=== PATIENT | male | born 1985 | race Caucasian/White ===

== ENCOUNTER 2018-03-13 21:50 | Emergency (ER) | payer BC, SELFPAY ==
[2018-03-13 21:52] VITALS: BP 146/89; PULSE 67; RESP 14; TEMP 36.7; O2SAT 98; BMI 35.1
--- NOTE | 2018-03-13 22:37 | US_ITS ---
STUDY: SCROTUM ULTRASOUND REASON FOR EXAM: Male, 33 years old. Right testicular pain with anterior nodule. TECHNIQUE: Ultrasound evaluation of the scrotum was performed with color Doppler and static pinedo-scale imaging. COMPARISON: None. FINDINGS: RIGHT TESTICLE INTRATESTICULAR: There is a normal size of the right testicle. The right testicle measures 4.9 x 3.1 x 2.8 cm. There is a homogenous echotexture. There is normal arterial and normal venous vascularity. There is no demonstrated right testicular mass or cyst. EXTRATESTICULAR: The epididymis is normal in size. The epididymis head measures 1.5 x 1.7 x 1.1 cm. There is normal vascularity of the epididymis. There are 2 well-defined cystic structures within the epididymis, without internal echoes, consistent with a 1.2 x 0.9 x 0.5 and a 0.6 x 0.6 x 0.7 cm epididymal cyst. There is a moderate size hydrocele containing debris. There is no demonstrated varicocele. There is no demonstrated extratesticular mass or cyst. Scrotal wall thickness is 0.3 cm. LEFT TESTICLE INTRATESTICULAR: There is a normal size of the left testicle. The left testicle measures 4.3 x 3.2 x 2.3 cm. There is a homogenous echotexture. There is normal arterial and normal venous vascularity. There is no demonstrated left testicular mass or cyst. EXTRATESTICULAR: The epididymis is normal in size. The epididymis head measures 1.4 x 1.2 x 0.8 cm. There is normal vascularity of the epididymis. There is a 0.2 x 0.3 x 0.2 cm well-defined cystic structure within the epididymis, without internal echoes, consistent with an epididymal cyst. There is a moderate size hydrocele containing debris. There is no demonstrated varicocele. There is no demonstrated extratesticular mass or cyst. Scrotal wall thickness 0.3 cm. US/Testicular with Arterial Flow IMPRESSION: There is no testicular mass, inflammation or torsion. 2 right epididymal cysts at the site of palpable abnormality. Tiny left epididymal cyst. Bilateral moderate hydrocele with layering debris. Electronically Signed: Phylicia Sarmiento MD at 23:51 EST , Service support ,
[2018-03-13 23:42] LABS: Bacteria 0 SEEN /hpf (None Seen); Mucous, Urine 0 SEEN /hpf (<or=2+); Red Blood Cells-Urine 0 SEEN /hpf (0-5); White Blood Cells 0 SEEN /hpf (0-5)
[2018-03-13 23:49] LABS: Color, Urine Yellow (Yellow); Glucose, Dipstick Normal (Normal); Ketone-Dipstick Negative (Negative); Leukocyte Esterase-Dipstick Negative /ul (Negative); Nitrite-Dipstick Negative (Negative); Occult Blood-Urine Negative /ul (Negative); Protein-Dipstick Negative (Negative); Urine Bilirubin Dipstick Negative (Negative); Urine Clarity Clear (Clear); Urine Urobilinogen Normal (Normal); Urine pH 6.5 (5.0 - 8.0)
[2018-03-14 00:10] LABS: Squamous Epithelial Cells - UA 0-5 SEEN /hpf (0-5)
[2018-03-14 00:30] VITALS: RESP 16; O2SAT 98
--- NOTE | 2018-03-14 00:35 | ED.VISSUMM ---
- ER Visit Summary Date of Service: 03/14/18 Chief Complaint: Blood in semen and lump on testicle History of Present Illness: The patient is a 33 M who presents with blood in his semen which he first noticed 1 week ago. Today noticed a lump on his right testicle. He denies any pain. No history of sexually transmitted infection. No urethral discharge. No dysuria urgency or frequency. Review of systems otherwise negative. No history of prior similar symptoms. Physical Examination: Afebrile vitals unremarkable Moist mucous membranes Heart regular rate and rhythm Lungs clear Patient does have a right epididymal nodule with some tenderness there is no testicular tenderness there is no rash there is no urethral discharge normal lie of the testicles Test Results: Urinalysis normal. Urine GC and chlamydia were sent. Testicular ultrasound shows right epididymal cysts and bilateral hydroceles. Emergency Department Course and Treatment: Ultrasound unremarkable except epididymal cysts. No evidence of malignancy. Patient was referred to urology for follow-up. Patient discharged. Treatment Plan: [] Disposition: Discharge Impression: Hematospermia Epididymal cyst This note was generated with [employer] dictation software. It may contain incorrect words, spelling, and punctuation that were not noted in review of the chart prior to signing ED Disposition - Plan for ED Patient: Chief Complaint: Male Pain/Injury Referrals: Care Physician,No Primary [Primary Care Provider] -
--- NOTE | 2018-03-14 00:36 | ED.DEP ---
ED Disposition - Plan for ED Patient: Chief Complaint: Male Pain/Injury Referrals: Care Physician,No Primary [Primary Care Provider] - Raj Spivey MD [STAFF PHYSICIAN] - Additional Instructions: You were found to have cysts above your testicle. He has had blood in your semen but there is no evidence of cancer based on your ultrasound. Follow-up with urology. Return for any new or worsening symptoms.
[2018-03-14 00:43] VITALS: BP 136/82; PULSE 88; RESP 16; O2SAT 100
[2018-03-14 01:59] LABS: Chlamydia Trachomatis by PCR Negative (Negative); Neisserai gonorrhoeae by PCR Negative (Negative); Probe Check PASS; Sample Adequacy Control PASS; Specimen Processing Control PASS
--- OUTSIDE RECORDS SUMMARY | 2018-05-09 10:37 | XMS RPT_ITS ---
:1985 Author Organization [facility] Care Team Providers Name Role Phone Dao Jones Attending Unavailable Primay Care Physicia, No Primary Care Unavailable PROBLEMS PROBLEMS No Problem Records FoundPROCEDURES PROCEDURES No Procedure Records FoundRESULTS RESULTS DISCHARGE INSTRUCTION Observed: 03/14/2018 Status: F Source: [place] 12:37 AM [facility] REPOSITORY [facility] Medical Records Department [address] [place] [address] Discharge Instruction 03/14/186 MR#: [id number] Acct: [id number] Name: KANU JENKINS Rep #: [id number] : 1985 33 From: Dao Jones MD PCP: Care Physician, No Primary Status: REG ER ED Disposition - Plan for ED Patient: Chief Complaint: Male Pain/Injury Referrals: Care Physician,No Primary [Primary Care Provider] - Raj Spivey MD [STAFF PHYSICIAN] - Additional Instructions: You were found to have cysts above your testicle. He has had blood in your semen but there is no evidence of cancer based on your ultrasound. Follow-up with urology. Return for any new or worsening symptoms. What to do if you have Problems For any increased pain, shortness of breath, bleeding, nausea or vomiting, chest pain, or any unexpected problems, contact your Primary Care Provider. Call [facility] ([phone]) or report to the closest Emergency Room. Call 911 if necessary. 03/14/187 <Electronically signed by Dao Jones MD> Date Dao Jones MD Cosigner Signature (If Indicated): Date CC: No Primary Care Physician EMERGENCY DEPARTMENT Observed: 03/14/2018 Status: F Source: [place] SUMMARY 12:36 AM [facility] REPOSITORY [facility] Medical Records Department [address] [place] [address] Emergency Department Summary 03/14/18 0035 MR#: [id number] Acct: [id number] Name: KANU JENKINS Rep #: [id number] : 1985 33 From: Dao Jones MD PCP: Care Physician, No Primary Status: REG ER - ER Visit Summary Date of Service: 03/14/18 Chief Complaint: Blood in semen and lump on testicle History of Present Illness: The patient is a 33 M who presents with blood in his semen which he first noticed 1 week ago. Today noticed a lump on his right testicle. He denies any pain. No history of sexually transmitted infection. No urethral discharge. No dysuria urgency or frequency. Review of systems otherwise negative. No history of prior similar symptoms. Physical Examination: Afebrile vitals unremarkable Moist mucous membranes Heart regular rate and rhythm Lungs clear Patient does have a right epididymal nodule with some tenderness there is no testicular tenderness there is no rash there is no urethral discharge normal lie of the testicles Test Results: Urinalysis normal. Urine GC and chlamydia were sent. Testicular ultrasound shows right epididymal cysts and bilateral hydroceles. Emergency Department Course and Treatment: Ultrasound unremarkable except epididymal cysts. No evidence of malignancy. Patient was referred to urology for follow-up. Patient discharged. Treatment Plan: [] Disposition: Discharge Impression: Hematospermia Epididymal cyst This note was generated with [employer] dictation software. It may contain incorrect words, spelling, and punctuation that were not noted in review of the chart prior to signing ED Disposition - Plan for ED Patient: Chief Complaint: Male Pain/Injury Referrals: Care Physician,No Primary [Primary Care Provider] - What to do if you have Problems For any increased pain, shortness of breath, bleeding, nausea or vomiting, chest pain, or any unexpected problems, contact your Primary Care Provider. Call [facility] ([phone]) or report to the closest Emergency Room. Call 911 if necessary. 03/14/18 0036 <Electronically signed by Dao Jones MD> Date Dao Jones MD Cosigner Signature (If Indicated): Date CC: No Primary Care Physician URINALYSIS, COMPLETE Collected: 03/13/2018 Status: F Source: [place] 11:32 PM [facility] REPOSITORY Order Comment: Order Date: 03/13/18 How was Urine Obtained? CLEAN CATCH TYPE CODE TESTS RESULT OUT OF RANGE REFERENCE UNITS LAB L400.3000 Yellow COLOR Normal Yellow LAB L400.3050 Clear Normal CLARITY Clear LAB L400.3200 Normal mg/dl Normal GLUCOSE, UR Normal LAB L400.3300 Negative mg/dL Normal BILIRUBIN URINE Negative LAB L400.3400 Negative mg/dl Normal KETONE UR Negative LAB L400.3465 1.002-1.030 Normal SP.GR. DIPSTX 1.020 LAB L400.3550 5.0 - 8.0 pH UR Normal 6.5 LAB L400.3600 Negative mg/dl PROT Normal DIPSTX Negative LAB L400.3700 Normal mg/dl Normal UROBILI Normal LAB L400.3750 Negative Normal NITRITE UR Negative LAB L400.3780 Negative /ul Normal OCCULT BLOOD-UR Negative LAB L400.3800 Negative /ul LEUK Normal ESTERASE Negative LAB L400.4050 0-5 /hpf WBC 0 Normal SEEN LAB L400.4100 0-5 /hpf 0 Normal RBC-UA SEEN LAB L400.4150 0-5 /hpf SQUAM Normal EPI 0-5 SEEN LAB L400.4300 None Seen /hpf 0 Normal BACTERIA SEEN LAB L400.4350 <or=2+ /hpf 0 Normal MUCUS, URINE SEEN Performed By: #### L400.0001 #### [facility] [address] [place], [address] CT/NG [facility] BY PCR Collected: 03/13/2018 Status: F Source: [place] 11:32 PM [facility] REPOSITORY TYPE CODE TESTS RESULT OUT OF RANGE REFERENCE UNITS LAB L8200.2100 Negative Normal Chlam Negative Trac PCR LAB L8200.2200 Negative Normal NG by Negative PCR Performed By: #### L8200.2000 #### [facility] [address] [place], [address] TESTICULAR WITH Observed: 03/13/2018 Status: F Source: [place] ARTERIAL FLOW 10:37 PM [facility] REPOSITORY [facility] Imaging Services [address] [place] [address] Testicular with Arterial Flow MR#: [id number] Acct: [id number] Name: KANU JENKINS Rep #: [id number] : 1985 M 33 From: Phylicia Sarmiento MD PCP: Care Physician, No Primary Status: REG ER Study: Testicular with Arterial Flow Date of Exam: 03/13/18 Exam# [id number] Ordering Dr: Dao Jones MD STUDY: SCROTUM ULTRASOUND REASON FOR EXAM: Male, 33 years old. Right testicular pain with anterior nodule. TECHNIQUE: Ultrasound evaluation of the scrotum was performed with color Doppler and static pinedo-scale imaging. COMPARISON: None. FINDINGS: RIGHT TESTICLE INTRATESTICULAR: There is a normal size of the right testicle. The right testicle measures 4.9 x 3.1 x 2.8 cm. There is a homogenous echotexture. There is normal arterial and normal venous vascularity. There is no demonstrated right testicular mass or cyst. EXTRATESTICULAR: The epididymis is normal in size. The epididymis head measures 1.5 x 1.7 x 1.1 cm. There is normal vascularity of the epididymis. There are 2 well-defined cystic structures within the epididymis, without internal echoes, consistent with a 1.2 x 0.9 x 0.5 and a 0.6 x 0.6 x 0.7 cm epididymal cyst. There is a moderate size hydrocele containing debris. There is no demonstrated varicocele. There is no demonstrated extratesticular mass or cyst. Scrotal wall thickness is 0.3 cm. LEFT TESTICLE INTRATESTICULAR: There is a normal size of the left testicle. The left testicle measures 4.3 x 3.2 x 2.3 cm. There is a homogenous echotexture. There is normal arterial and normal venous vascularity. There is no demonstrated left testicular mass or cyst. EXTRATESTICULAR: The epididymis is normal in size. The epididymis head measures 1.4 x 1.2 x 0.8 cm. There is normal vascularity of the epididymis. There is a 0.2 x 0.3 x 0.2 cm well-defined cystic structure within the epididymis, without internal echoes, consistent with an epididymal cyst. There is a moderate size hydrocele containing debris. There is no demonstrated varicocele. There is no demonstrated extratesticular mass or cyst. Scrotal wall thickness 0.3 cm. US/Testicular with Arterial Flow IMPRESSION: There is no testicular mass, inflammation or torsion. 2 right epididymal cysts at the site of palpable abnormality. Tiny left epididymal cyst. Bilateral moderate hydrocele with layering debris. Electronically Signed: Phylicia Sarmiento MD at 23:51 EST , Service support , CC: No Primary Care Physician; Dao Jones MD Pricing/Signage Team Member: Signed ALLERGIES ALLERGIES DATE TYPE / CODE NAME / CODE REACTION SEVERITY SOURCE 03/13/2018 Drug No Known Unknown [facility] Allergy/4160 Allergies/F00 [facility] [address]75(SNOMED [id number](RXNOR Repository CT) M) ENCOUNTERS ENCOUNTERS ADMIT/DISCHARGE ACCOUNT ADMITTING ENCOUNTER LOCATION SOURCE NUMBER CLASS 03/13/2018/11/28/201 [id number] Emergency [place] [address] ing:ED Repository PAYERS PAYERS ENCOUNTER GUARANTOR PAYER SUBSCRIBER SOURCE 03/13/2018 KANU BOBBY R [address] [id number] [facility] Insurance:ANTHEMPolic REEDDOB: Community [address] y Number: [id number] [place] [id number] Repository [address]Tlq: ([phone]) Date:[id number] [phone] () [place], [place] [address]YO: 03/13/2018 Secondary NOT GIVENELSY Avila Insurance:SELF PAY [facility] Number: Effective Repository Date:2018-03-13
== END 2018-03-14 00:50 | disposition home or self-care (01) ==
PROVIDERS: Emergency Provider Emergency Medicine
DX: R36.1 Hematospermia (principal); N50.3 Cyst of epididymis; N43.3 Hydrocele, unspecified
CPT/HCPCS: 76870; 81001; 87491; 87591; 93976; 99282

== ENCOUNTER 2020-07-17 13:28 | Outpatient (RCR) | payer OTHER, SELFPAY | END 2020-09-22 23:59 | LOC: IMMUN 13:28 | PROVIDERS: PCP Family Medicine; Visit Provider Family Medicine | DX: Z23 Encounter for immunization (principal) | CPT/HCPCS: 0001A; 0002A; 91300 ==

== ENCOUNTER → 2025-01-25 | Outpatient (CLI) | payer OTHER, SELFPAY | END | disposition home or self-care (01) | PROVIDERS: PCP Family Medicine; Referring Provider Nurse Practitioner Family; Visit Provider Nurse Practitioner Family | DX: L02.91 Cutaneous abscess, unspecified (principal) | CPT/HCPCS: 87070; 87077; 87205 ==